=== PATIENT | male | born 1955 | race Caucasian/White ===

== ENCOUNTER 2021-05-27 12:41 | Emergency (ER) | payer MEDICARE, OTHER ==
[~2021-05-27] VITALS: Ht 188 cm; Wt 123.0 kg
--- NOTE | 2021-05-27 13:29 | NUR ---
PT TO ROOM FROM LOBBY, GAIT STEADY AND SLOW.
--- NOTE | 2021-05-27 13:36 | NUR ---
PT PRESENTS TO ED FOLLOWING MECHANICAL GROUND LEVEL FALL THIS AFTERNOON WHILE PLAYING TENNIS, STATES HE TRIPPED AND FELL FORWARD INTO NET STRIKING FACE AND RIGHT SHOULDER. PT STATES HE IS UNSURE WHETHER OR NOT HE LOST CONSIOUSNESS AFTER FALL. PT HAS ABRASIONS TO NOSE AND CHIN, RIGHT KNEE, RIGHT FOREARM. PT DENIES MIDLINE CERVICAL TENDERNESS/PAIN. PT NOTES RIGHT SHOULDER PAIN, UNABLE TO LIFT RIGHT ARM BEYOND 30 DEGREES. RIGHT RADIAL PULSE STRONG, CMS INTACT TO RIGHT ARM. NO BRUSING OR DEFORMITY NOTED TO SHOULDER, ARM OR TORSO. RESPS EVEN AND UNLABORED. PT IS A&OX4, NEUROLOGICALLY INTACT. ALL MONITORS IN PLACED, NSR GRINDER SET UP OPERATOR SURFACE WITH NO ECTOPY. CALL LIGHT IN REACH. AT BEDSIDE. MD AT BEDSIDE FOR INITIAL ASSESSMENT.
--- NOTE | 2021-05-27 13:58 | NUR ---
PT IN IMAGING AT THIS TIME.
[2021-05-27] MEDS ORDERED: DIPH,PERTUSS(ACELL),TET VAC/PF 0.5 ML IM-VACC ONE ×2 (14:00→15:15)
--- NOTE | 2021-05-27 15:07 | NUR ---
RECEIVED REPORT FROM JOANIE MYERS, TRANSFER OF CARE.
--- NOTE | 2021-05-27 15:10 | NUR ---
REPORT GIVEN TO LUCIA WALSH WHO IS ASSUMING CARE.
--- NOTE | 2021-05-27 15:16 | NUR ---
emt at bedside completed immobilizer.
--- NOTE | 2021-05-27 15:22 | NUR ---
PT AMBULATED TO BATHROOM WITH STEADY GAIT.
[2021-05-27] MEDS ORDERED: OXYcodone/APAP 5/325MG TABLET PO ONE (15:30)
[2021-05-27] MEDS ORDERED: OXYcodone/APAP 5/325MG TABLET ONE (15:33)
--- NOTE | 2021-05-27 16:13 | NUR ---
Patient/Caregiver given discharge instructions and they have confirmed that they understand the instructions. Patient ambulatory with steady gait.
[2021-05-27 16:15] VITALS: BP 146/82
== END 2021-05-27 16:16 | disposition home or self-care (01) ==
LOC: ED 13:45
DX: S42.294A Other nondisplaced fracture of upper end of right humerus, initial encounter for closed fracture (principal); R51.9 Headache, unspecified; R07.89 Other chest pain; M25.561 Pain in right knee; W18.30XA Fall on same level, unspecified, initial encounter; Y93.73 Activity, racquet and hand sports; Y92.328 Other athletic field as the place of occurrence of the external cause; Y99.8 Other external cause status
CPT/HCPCS: 29105; 70450; 90471; 90715